=== PATIENT | male | born 1975 | race American Indian/Alaskan Native ===

== ENCOUNTER 2017-04-19 10:51 | Emergency (ER) | payer SELFPAY ==
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
[2017-04-19 12:16] VITALS: BP 101/56
== END 2017-04-19 12:34 | disposition home or self-care (01) ==
LOC: ED 10:51
DX: B35.6 Tinea cruris (principal); J45.909 Unspecified asthma, uncomplicated; F17.200 Nicotine dependence, unspecified, uncomplicated; F12.10 Cannabis abuse, uncomplicated
CPT/HCPCS: 99282

== ENCOUNTER 2017-05-10 12:03 | Emergency (ER) | payer OTHER ==
[2017-05-10 12:25] VITALS: BP 116/76
== END 2017-05-10 12:25 | disposition left against medical advice (07) ==
LOC: ED 12:03
DX: L02.529 Furuncle unspecified hand (principal); Z53.21 Procedure and treatment not carried out due to patient leaving prior to being seen by health care provider